=== PATIENT | female | born 1985 | race African-American/Black ===

== ENCOUNTER 2018-12-18 01:40 | Inpatient (IN) | payer OTHER ==
[~2018-12-18] VITALS: Ht 162.6 cm; Wt 59.0 kg
--- NOTE | ~2018-12-18 | HC ---
[facility] [place] [address] CONSULTATION Name: BROOKLYN BIAN Zack Room #: 204-P ADM IN M.R.#: [id number] Admission: 12/18/18 ������������������ Attend Phys: Gunnar Castillo MD Discharge: ������������������ Date of : 87 Report #: [id number] THIS REPORT FOR: //name// CC: Gunnar Castillo [facility] physician/PCP DATE OF SERVICE: 12/18/2018 LOCATION: Room number 204 at [facility]. HISTORY OF PRESENT ILLNESS: This is a 33-year-old female patient who will not provide any history. She wakes up, but goes back to sleep pretty fast. The history is from the records because no family member is available. I reviewed the notes from Emergency Room and it looks like this patient was admitted with repeated seizures, but she was able to talk during the seizure as I understand from the Emergency Room records. The patient apparently is noncompliant with the seizure medications. She goes to [facility] for her care. She drinks alcohol. It is not clear how much alcohol she has drunk in the past and she has also used marijuana. She had a surgery in the frontal lobe area, and according to her, that was because of a mass. REVIEW OF SYSTEMS: Is very limited. I attempted 14-point review of system in this patient mainly from the records and some from the patient, but the patient did not provide much history. She had a surgery on the right frontal area. She has a history of unhealthy habits as summarized above as well as noncompliance. She does have leukocytosis, but I do not see any meningeal sign. PAST MEDICAL HISTORY: Positive for seizure. FAMILY HISTORY: Unavailable. SOCIAL HISTORY: She drinks alcohol, but I do not have any direct confirmation of that history. PHYSICAL EXAMINATION: The patient refused to cooperate with examination. I cannot tell anything about the memory because she will not cooperate. She does not appear to have any meningeal sign. Cardiac and respiratory examination are unremarkable. Blood pressure is 100/62, respirations 18, pulse is 80 and temperature is 99.4. Her imaging study does demonstrate old changes, but no new changes. It is not clear when was the last time she took any medication. She was given a loading dose of Keppra in the Emergency Room and she was put on maintenance dosages of Keppra. She has not had any further seizure after coming to the hospital as I understand. [address] [address] CONSULTATION Name: BROOKLYN BAIN Room #: 204-P [facility] IN .R.#: [id number] Admission: 12/18/18 ������������������ Attend Phys: Gunnar Castillo MD Discharge: ������������������ Date of : 87 Report #: [id number] IMPRESSION: Breakthrough seizure because of noncompliance and multiple unhealthy habits including alcohol intake. Presently, I think we should presume they are true seizures. She does have some white count and slight fever, that can occur with seizures. We will ask infectious disease to evaluate her in that regard. I will continue Keppra, wait for EEG and then decide about further management. ��������������������������������������������� ���������������������������������������� By: ��������������������������������������������� 0906 [id number] Michele Coley MD /nt
--- NOTE | ~2018-12-18 | EEG ---
[facility] [place] [address] ELECTROENCEPHALOGRAM Name: BROOKLYN BAIN Room #: 204-P ADM IN M.R.#: [id number] ������������������ Admission: 12/18/18 ������������������ Attend Phys: Gunnar Castillo MD Discharge: ������������������ Date of : 87 Report #: [id number] ����������������������������������������������������������������� [id number] THIS REPORT FOR: //name// CC: Gunnar Castillo [facility] physician/PCP DATE OF SERVICE: 12/18/2018 INTERPRETATION: This patient's EEG was done by placing the electrodes by standard 10-20 system of electrode placement. Both referential and sequential montages were used for recording. Background activity in this patient's EEG is about 9 Hz and 30 microvolts. Photic stimulation is unremarkable. EEG is somewhat more slow on occasion and that maybe because of drowsiness. Throughout the record, no active epileptiform activity was noticed. IMPRESSION: This patient's EEG does not show any active epileptiform activity. Thank you very much for this referral. ���������������������������������������� ���������������������������������������� By: ��������������������������������������������� 1737 [id number] Michele Coley MD /nt
[2018-12-18 02:20] LABS: HEMATOCRIT 38.6 % (37.0-47.0); HEMOGLOBIN 11.8 gm/dL (12.0-15.0); MCHC 30.6 g/dL (28.0-37.0); MCV 88.5 fL (80.0-100.0); PLATELET COUNT 342 thou/uL (150-400); RBC 4.36 mil/uL (4.20-5.00); RDW 15.8 % (10.5-14.5); WBC 16.4 thou/uL (4.0-11.0)
[2018-12-18 02:20] LABS: URINE BILIRUBIN NEGATIVE (Negative); URINE BLOOD 2+ (Negative); URINE CLARITY CLEAR; URINE COLOR YELLOW; URINE GLUCOSE-RANDOM* 1+ (Negative); URINE KETONES TRACE (Negative); URINE LEUKOCYTES-REFLEX NEGATIVE (Negative); URINE NITRITE-REFLEX NEGATIVE (Negative); URINE PROTEIN (DIPSTICK) 1+ (Negative); URINE SPECIFIC GRAVITY 1.025 (1.005-1.035); URINE UROBILINOGEN 0.2 E.U./dl (0.2-1.0)
[2018-12-18 02:26] LABS: CALCIUM 8.9 mg/dL (8.5-10.1); CREATININE 1.7 mg/dL (0.6-1.0); POTASSIUM 4.3 mmol/L (3.5-5.1)
[2018-12-18 02:28] LABS: AMP/METHAMP Negative (Negative); BARBITURATES Negative (Negative); BENZODIAZEPINES Negative (Negative); COCAINE Negative (Negative); METHADONE Negative (Negative); OPIATES Negative (Negative); PCP Negative (Negative)
[2018-12-18 02:39] LABS: BACTERIA-REFLEX 1-9 Few /HPF (None Seen); MUCUS 0-3 Light strn/LPF (None Seen); SQUAMOUS >10 Many /LPF (0-3); URINE RBC 3-10 Few /HPF (0-2); URINE WBC-REFLEX 0-5 Rare /HPF (0-5)
[2018-12-18 02:40] LABS: CASTS None Seen /LPF (None Seen); CRYSTALS None Seen /LPF (None Seen)
[2018-12-18 03:06] LABS: ABSOLUTE NEUTROPHILS 4.4 thou/uL (1.4-8.2)
[2018-12-18 03:07] LABS: PLATELET ESTIMATE NORMAL
--- NOTE | 2018-12-18 03:12 | NUR ---
RELEASE FOR MEDICAL RECORDS SENT TO [facility]
[2018-12-18 05:20] VITALS: BP 101/63
[2018-12-18 05:39] VITALS: BP 101/63
[2018-12-18 06:09] VITALS: BP 100/62
--- NOTE | 2018-12-18 06:44 | NUR ---
PT ARRIVED FROM ED AT 0600 THIS. PT IS DROWSY AND POST ICTICAL. WOULD NOT COMMUNICATE OR ANWER ANY QUESTIONS. PT HAD 650 IN HER ATWOOD. PT IS CURRENTLY SLEEPING, ADMISSION ASSESSMENTS AND CONSENT FORMS UNABLE TO BE COMPLETED AND SIGNED AT THIS MOMENT PT IS DROWSY AND NOT RESPONDING TO QUESTIONS. PT CURRENTLY APPEARS STABLE, VSS. PT CARE TO BE TRANSFERED TO [facility].
[2018-12-18 11:11] VITALS: BP 100/66
[2018-12-18 15:30] VITALS: BP 92/58
--- NOTE | 2018-12-18 16:21 | NUR ---
Met with patient and mother at bedside. Patient lives with mother. patient admits post seizure. She has medicare part A only and reports she is on disability. Mom reports no PCP but she has a neurologist Dr Ramírez. She has not taken her Keppra for approx a 1 1/2 years. Mom reports she needed to f/u with phys for new script and she did not have money to pay out of pocket for phys apt. Referral to [facility] to determine if medicaid eligible for secondary ins for prescription assistance. Patient believes she has rec mo medicaid in past.
--- NOTE | 2018-12-18 17:09 | NUR ---
ASSUMED PATIENT CARE AT 0830. A/O X4.LETHARGIC. ON SEIZURE PROCUATION. DENIES PAIN. ASSISTED WALK TO BATHROOM WITH STEADY GAIT. PROGRESSING TOWARDS POC GOALS.
[2018-12-18 19:49] VITALS: BP 102/58
[2018-12-19 00:08] VITALS: BP 117/58
[2018-12-19 04:33] VITALS: BP 101/67
[2018-12-19 04:37] LABS: ABSOLUTE NEUTROPHILS 3.8 thou/uL (1.4-8.2); BASOPHILS 0.5 % (0.0-2.0); EOSINOPHILS 0.7 % (0.0-3.0); HEMATOCRIT 30.6 % (37.0-47.0); LYMPHOCYTES 43.7 % (24.0-44.0); MCH 27.8 pg (26.0-34.0); MCHC 32.7 g/dL (28.0-37.0); MCV 84.8 fL (80.0-100.0); MONOCYTES 8.1 % (1.0-8.0); RBC 3.61 mil/uL (4.20-5.00); RDW 15.6 % (10.5-14.5); WBC 8.1 thou/uL (4.0-11.0)
[2018-12-19 04:47] LABS: ALBUMIN 2.8 g/dL (3.4-5.0); ANION GAP 11 mmol/L (7-16); BUN 9 mg/dL (7-18); CALCIUM 7.9 mg/dL (8.5-10.1); CHLORIDE 109 mmol/L (98-107); CO2 20 mmol/L (21-32); CREATININE 0.8 mg/dL (0.6-1.0); GLUCOSE 102 mg/dL (74-106); PLATELET COUNT 209 thou/uL (150-400); SGOT 30 U/L (15-37); SGPT 37 U/L (30-65); SODIUM 140 mmol/L (136-145); TOTAL BILIRUBIN < 0.1 mg/dL (<0.1-1.0); TOTAL PROTEIN 5.4 g/dL (6.4-8.2)
--- NOTE | 2018-12-19 05:44 | NUR ---
PATIENT IS PROGRESSING IN HER CARE PLAN. VITAL SIGNS STABLE WITH PATIENT HAVING NO COMPLAINTS OF PAIN OR NAUSEA. FULLY ORIENTED THROUGHOUT SHIFT, PATIENT WAS ABLE TO EFFECTIVELY STATE NEEDS TO STAFF. NURSE DID NOT NOTE, NOR DID PATIENT STATE ANXIETY. SEIZURE PRECAUTIONS MAINTAINED WITH NO EPISODES OCCURRING . GOOD OUTPUT THROUGH ATWOOD CATHETER. PATIENT IS ABLE TO AMBULATE WITH STANDBY ASSISTANCE BUT IS STILL CONSIDERED A HIGH FALL RISK. CONTINUE PLAN OF CARE.
[2018-12-19 07:35] VITALS: BP 122/74
--- NOTE | 2018-12-19 09:21 | HC ---
[facility] [place] [address] CONSULTATION Name: BROOKLYN BAIN Room #: 204-P [facility] IN M.R.#: [id number] Admission: 12/18/18 ������������������ Attend Phys: Gunnar Castillo MD Discharge: ������������������ Date of : 87 Report #: [id number] THIS REPORT FOR: //name// CC: Gunnar Castillo [facility] physician/PCP DATE OF SERVICE: 12/18/2018 TYPE OF REPORT: Infectious diseases consultation. REASON FOR CONSULTATION: I was asked to evaluate concerning seizure and leukocytosis. HISTORY OF PRESENT ILLNESS: The patient was a 33-year old who presents with acute seizure episode at home. She had tonic-clonic seizure. She bit her tongue. She was at her mother's house and it was witnessed after the fact. Mother heard a thud approximately 1:30 in the morning. She went into the bedroom and found the patient seizing. 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 She has been off her medications for approximately 2 years. The patient states it is because her insurance does not pay for the medications. Currently, she is alert but has amnesia for the episode. No headache. No neck pain. No cough or sputum production. No nausea or vomiting. She did have loose stools today. No dysuria or frequency. REVIEW OF SYSTEMS: Ten-point review of systems was negative other than what was described above. The patient does not drive. Otherwise, gets around fairly well on a regular basis. She has had no travel. ALLERGIES: None known. MEDICATIONS: As noted on her MAR, having been given vancomycin and ceftriaxone in the Emergency Room. PAST MEDICAL HISTORY: Seizure disorder, frontal craniotomy and alcohol abuse. FAMILY HISTORY: Noncontributory. SOCIAL HISTORY: Smokes cigarettes and marijuana. PHYSICAL EXAMINATION: VITAL SIGNS: She is afebrile, hemodynamically stable. GENERAL: She is alert and cooperative. She had some weakness on her left side compared to her right in both upper and lower extremities. She was amnestic to the events leading up to her hospital stay. Does know where she is. SKIN: Without rash. No adenopathy. HEENT: Eyes, without scleral icterus. Mouth without mucositis. [facility] [address] [place] [address] CONSULTATION Name: BROOKLYN BAIN Room #: 204-P [facility] [place] [facility].#: [id number] Admission: 12/18/18 ������������������ Attend Phys: Gunnar Castillo MD Discharge: ������������������ Date of : 87 Report #: [id number] NECK: Supple. LUNGS: Clear. HEART: Regular, without murmur, gallop or rub. ABDOMEN: Soft and nontender. No hepatosplenomegaly or mass. EXTREMITIES: Without clubbing, cyanosis or edema. Cranial nerves intact. Strength was -1, hand director of professional services and foot dorsi flexors on the left compared to the right. Deep tendon reflexes were normal. Sensation intact, upper and lower extremities to touch. LABORATORY STUDIES: Chest x-ray was clear. CT scan of the head noted with postoperative changes, nothing acute. Sedimentation rate 4, CRP less than 2 and CPK 154. Hemoglobin 11.8; WBC 16; platelet count 342,000; 27% segs and 64% lymphs. Urinalysis, 1+ protein and glucose. Sodium 140, potassium 4.3, bicarbonate of 14 and creatinine 1.7. Blood cultures pending. IMPRESSION: Acute seizure episode in the setting with seizure risk from previous craniotomy and meningoencephalitis remotely. I am suspecting her leukocytosis may be more related to her seizure episode. We will need to watch for aspiration, pneumonia to develop, although initial chest x-ray was clear. I am not finding evidence at this point to support encephalitis or meningitis. She does have predominant lymphocytic differential. This will be rechecked. RECOMMENDATIONS: Observe off antibiotics. Repeat CBC and CMP in the a.m. Observe for evidence of fever. The patient will be placed back on her anti-seizure medications. I did discuss with social worker school regarding any insurance assistance for her medications. ��������������������������������������������� <ELECTRONICALLY SIGNED> ���������������������������������������� By: Raman Ken MD ��������������������������������������������� 12/19/18 0921 [id number] [id number] Raman Ken MD /nt
[2018-12-19 11:35] VITALS: BP 121/81
--- NOTE | 2018-12-19 15:31 | NUR ---
[place],and [facility] information provided and reviewed at bedside with the pt. Pt encouraged to make a new pt appt at [facility] as there is a clinic location near her mother's home. She is going to call [place] medicaid as she believes she has submitted an application recently. CM can assist [place]. Pt receptive and appears able to followup on her own.
[2018-12-19 17:10] VITALS: BP 113/76
[2018-12-19 19:28] VITALS: BP 148/89
--- NOTE | 2018-12-19 19:56 | NUR ---
ASSUMED CARE OF PATIENT AT 0700. PATIENT UNDER SEIZURE PRECAUTIONS WITH PADDING ON THE BED. PATIENT DENIES ANY SEIZURE ACTIVITY. PATIENT AMBULATED IN THE HALLWAY WITH PT. PATIENT DENIES ANY PAIN OR CONCERNS. CONTINUE TO FOLLOW WITH POC.
[2018-12-19 20:07] LABS: TSH 3.221 uIU/mL (0.358-3.740)
[2018-12-20 03:17] VITALS: BP 130/94
[2018-12-20 07:40] VITALS: BP 125/77
--- NOTE | 2018-12-20 08:00 | NUR ---
ASSESSMENTS CHARTED. PATIENT RESTING IN SEIZURE PRECAUTION BED DURING SHIFT. WAITING FOR KEPPRA LEVEL LAB. PLAN IS TO DISCHARGE PATIENT ON KEPPRA AND FOLIC ACID WITH FOLLOWUP WITH HER PRIMARY NEUROLOGIST.
[2018-12-20 11:30] VITALS: BP 143/79
[2018-12-20] MEDS ORDERED: FOLIC ACID 1 MG1 MG PO (12:06)
[2018-12-20] MEDS ORDERED: KEPPRA 500 MG500 M2 PO (12:06)
[2018-12-20 13:03] VITALS: BP 143/79
--- NOTE | 2018-12-20 15:14 | NUR ---
Pt dcing home today. Two scripts vouchered for a total of $21.84, Keppra and folic acid. No other interventions indicated. Pt completed a medicaid rashawn last night with the [employer] liason.
--- NOTE | 2018-12-20 16:28 | NUR ---
ASSESSMENT CHARTED - MEDS PER MAR - NO CO'S OF PAIN OR NAUSEA. ALEXI DIET AND FLUIDS - UP WITH STBY ASSIST DUE TO SEIZURE PRECAUTIONS. PT SEEN BY PHYS THERAPY - PT HOME THIS AFTERNOON. INSTRUCTIONS RE HOME MEDS/ CARE AND FOLLOW UP GIVEN TO PATIENT- STATED UNDERSTANDING OF INSTRUCTION GIVEN. PT TO HOME ADMINISTRATOR PRECRIPTIONS AT PHARMACY AT TIME OF DEPARTURE, INFORMED HER OF THIS AND GAVE HER SCRIPTS. IV AND MONITOR REMOVED PRIOR TO D/C. LEFT UNIT VIA WHEELCHAIR - HOME VIA PVT VEHICLE ACCOMPANIED BY MOTHER - NO CO'S AT TIME OF D/.C.
== END 2018-12-20 15:10 | disposition home or self-care (01) | DRG 100 ==
LOC: ER 01:40 → EROBS 04:33 → 2N 04:33
PROVIDERS: Psychiatry & Neurology Neuromuscular Medicine; Specialist; Student in an Organized Health Care Education/Training Program; ADMIT Hospitalist
PROC: 00JU3ZZ Inspection of Spinal Canal, Percutaneous Approach (ICD-10-PCS; principal; 2018-12-18)
DX: G40.909 Epilepsy, unspecified, not intractable, without status epilepticus (principal); N17.0 Acute kidney failure with tubular necrosis; Z53.9 Procedure and treatment not carried out, unspecified reason; D72.829 Elevated white blood cell count, unspecified; F17.210 Nicotine dependence, cigarettes, uncomplicated; G93.89 Other specified disorders of brain; Z91.14 Patient's other noncompliance with medication regimen; Z71.6 Tobacco abuse counseling; Z71.41 Alcohol abuse counseling and surveillance of alcoholic; Z79.899 Other long term (current) drug therapy
CPT/HCPCS: 10081